=== PATIENT | female | born 2005 | race Caucasian/White ===

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

== ENCOUNTER 2024-01-09 13:33 | Inpatient (IN) | payer OTHER ==
[2024-01-09] VITALS (21 sets, daily range): BP systolic 117–151; BP diastolic 67–95; O2SAT 96
[~2024-01-09] VITALS: Ht 152.4 cm; Wt 57.3 kg
[2024-01-09] MEDS ORDERED: HOME MED LIST COMPLETE! XX SCH (13:45)
[2024-01-09] MEDS ORDERED: CARBOPROST TROMETHAMINE 250 MCG/ML AMP IM PRN (14:05)
[2024-01-09] MEDS ORDERED: TRANEXAMIC ACID INJection 1,000 MG in NS 100 ML IV PRN (14:05)
[2024-01-09] MEDS ORDERED: METHYLERGONOVINE MALEATE 0.2MG/ML 1ML VIAL IM PRN (14:05)
[2024-01-09] MEDS ORDERED: OXYTOCIN DRIP 30 UNITS in IV 1 EA IV PRN (14:05)
[2024-01-09] MEDS: LACTATED RINGER'S 1000 ML IV STA (14:22)
[2024-01-09] MEDS: ONDANSETRON 4MG 2ML VIAL IV ONE (14:38)
[2024-01-09 14:41] LABS: HEMOGLOBIN 10.8 g/dl (12.0-15.5); MEAN CORPUSCULAR HGB CONC 33.8 g/dl (32.0-36.5); PLATELET COUNT, AUTOMATED 270 10^3/uL (150-450); RED BLOOD COUNT 3.48 10^6/uL (4.00-5.40); WHITE BLOOD COUNT 10.1 10^3/uL (4.0-10.0)
[2024-01-09] MEDS ORDERED: diphenhydrAMINE 50MG/ML VIAL IV PRN (15:05)
[2024-01-09] MEDS ORDERED: ePHEDrine SULFATE 25 MG/5 ML(5MG/ML) SYRINGE IVP PRN (15:05)
[2024-01-09] MEDS ORDERED: LR 500 ML IV PRN (15:05)
[2024-01-09] MEDS ORDERED: EPIDURAL/PCA KEYS XX PRN (15:05)
[2024-01-09] MEDS ORDERED: NALOXONE INJ 0.4MG/1ML VIAL IV PRN (15:05)
[2024-01-09] MEDS ORDERED: ONDANSETRON 4MG 2ML VIAL IV PRN (15:05)
[2024-01-09] MEDS ORDERED: FENTANYL 2MCG/ML ROPIVACAINE 0.2% IN 0.9% NACL 100ML IVBAG As Ordered ONE (15:08)
[2024-01-09] MEDS: LR 1,000 ML IV SCH (15:14)
[2024-01-09 15:35] LABS: HEPATITIS C VIRUS ABY INDEX 0.02 INDEX (<0.8)
[2024-01-09 16:47] LABS: LDH LACTATE DEHYDROGENASE 204 U/L (120-246)
[2024-01-09 16:48] LABS: ALT/SGPT 13 U/L (7.0-40); AST/SGOT 16 U/L (<34); BILIRUBIN,TOTAL 0.4 MG/DL (0.3-1.2); CREATININE FOR GFR 0.53 MG/DL (0.55-1.30)
[2024-01-09 17:00] LABS: URIC ACID 4.7 MG/DL (3.1-7.8)
[2024-01-09] MEDS: FENTANYL/ROPIVACAINE/NACL BAG 100 ML EPIDURAL SCH (17:08)
[2024-01-09] MEDS: OXYTOCIN DRIP 30 UNITS in IV 1 EA IV PRN (17:58)
[2024-01-09] MEDS ORDERED: METHYLERGONOVINE MALEATE 0.2 MG TAB PO PRN (18:05)
[2024-01-09] MEDS ORDERED: DIBUCAINE 1% OINTMENT 30GM TOP PRN (18:05)
[2024-01-09] MEDS ORDERED: DOCUSATE SODIUM 100MG CAPSULE PO PRN (18:05)
[2024-01-09] MEDS: IBUPROFEN 600MG TAB PO PRN (20:07)
[2024-01-10 06:00] VITALS: BP 133/77
[2024-01-10] MEDS: PRENATAL VITAMINS CHEWABLE TABLET PO SCH (07:38)
[2024-01-10] MEDS: RHO(D) IMMUNE GLOBULIN/MALTOSE 500MCG(2500IU)/2.2ML VIAL (WINRHO) IM SCH (08:06)
[2024-01-10 18:00] VITALS: BP 121/74; O2SAT 98
[2024-01-11 05:49] VITALS: BP 130/60; O2SAT 97
[2024-01-11] MEDS: MEASLES,MUMPS,RUBELLA VACCINE INJ (MMR-II) SC.IMMUN ONE (07:03)
[2024-01-11] MEDS: ACETAMINOPHEN 500 MG TAB PO PRN (08:23)
[2024-01-11] MEDS: BOOSTRIX VACCINE (TETANUS/DIPHTH/ACEL. PERTUSSIS) 0.5ML SYR IM.IMMUN ONE (08:24)
== END 2024-01-11 17:20 | disposition home or self-care (01) | DRG 807 ==
LOC: M LDO 13:33 → M LDI 13:54 → M OBS 19:42
PROVIDERS: ADMIT Obstetrics & Gynecology; ATTEND Obstetrics & Gynecology
PROC: 10E0XZZ Delivery of Products of Conception, External Approach (ICD-10-PCS; principal; 2024-01-09)
PROC: 10907ZC Drainage of Amniotic Fluid, Therapeutic from Products of Conception, Via Natural or Artificial Opening (ICD-10-PCS; 2024-01-09)
DX: O99.334 Smoking (tobacco) complicating childbirth (principal); Z37.0 Single live birth; F17.290 Nicotine dependence, other tobacco product, uncomplicated; Z3A.37 37 weeks gestation of pregnancy